=== PATIENT | male | born 1980 | race Two or more races ===

== ENCOUNTER 2020-11-27 19:13 | Inpatient (IN) | payer OTHER ==
[2020-11-27 20:46] VITALS: BMI 29.5
[2020-11-27] MEDS ORDERED: MENTHOL/PHENOL 1 EACH UD MM PRN (23:29)
[2020-11-27] MEDS ORDERED: ACETAMINOPHEN 325 MG TABLET (FP) PO PRN ×2 (23:29)
[2020-11-27] MEDS ORDERED: MAG HYDROX/AL HYDROX/SIMETH 30 ML UNIT-DOSE CUP PO PRN (23:29)
[2020-11-27] MEDS ORDERED: ONDANSETRON *ODT* 4 MG TABLET SL PRN (23:29)
[2020-11-27] MEDS ORDERED: MAGNESIUM CITRATE 300 ML BOTTLE PO PRN (23:29)
[2020-11-27] MEDS ORDERED: IBUPROFEN 400 MG TABLET (FP) PO PRN (23:29)
[2020-11-27] MEDS ORDERED: NICOTINE POLACRILEX 2 MG GUM BUC PRN (23:29)
[2020-11-27] MEDS ORDERED: BISMUTH SUBSALICYLATE 524 MG/30 ML UD PO PRN (23:29)
[2020-11-27] MEDS ORDERED: MAGNESIUM HYDROX 2400MG/30ML ORAL SUSPENSION 30 ML CUP PO PRN (23:29)
[2020-11-28] MEDS ORDERED: METHADONE HCL 10 MG TABLET (FOR DETOX USE ONLY) PO ONE (02:30)
[2020-11-28] MEDS ORDERED: cloNIDine HCL 0.1 MG TABLET PO PRN (02:30)
[2020-11-28] MEDS ORDERED: METHADONE HCL 10 MG TABLET (FOR DETOX USE ONLY) ONE (03:02)
[2020-11-28] MEDS ORDERED: cloNIDine HCL 0.1 MG TABLET ONE (06:11)
[2020-11-28] MEDS ORDERED: hydrOXYzine PAMOATE 25 MG CAPSULE (FP) PO ONE (06:11)
[2020-11-28] MEDS ORDERED: METHOCARBAMOL 500 MG TABLET ONE (06:11)
[2020-11-28] MEDS: METHOCARBAMOL 500 MG TABLET PO PRN ×2 (06:12→12:53)
[2020-11-28] MEDS: hydrOXYzine PAMOATE 25 MG CAPSULE (FP) PO PRN ×2 (06:12→12:53)
[2020-11-28 10:41] LABS: HEMATOCRIT 36.8 % (35.4-49); MCH 28.6 pg (25.7-33.7); MCHC 32.5 g/dl (32.0-35.9); MEAN CELL VOLUME 87.9 fl (80-96); MEAN PLT VOLUME 8.8 fl (7.5-11.1); PLATELET COUNT 263 K/MM3 (134-434); RBC 4.19 M/mm3 (4.00-5.60); RDW 12.8 % (11.9-15.9); WHITE BLOOD COUNT 12.4 K/mm3 (4.0-10.0)
[2020-11-28 11:23] LABS: POTASSIUM 3.6 mmol/L (3.5-5.1)
[2020-11-28 11:26] LABS: ALBUMIN 3.2 g/dl (3.4-5.0); CALCIUM 8.6 mg/dL (8.5-10.1)
[2020-11-28 11:27] LABS: BLOOD UREA NITROGEN 13.9 mg/dL (7-18)
[2020-11-28 11:30] LABS: CREATININE 1.1 mg/dL (0.55-1.3)
[2020-11-28 11:31] LABS: BILIRUBIN,TOTAL 0.5 mg/dL (0.2-1); TOT PROT 6.2 g/dl (6.4-8.2)
[2020-11-28] MEDS: PRENATAL VITAMINS W/ FOLIC ACID TABLET (FP) PO SCH (12:53)
[2020-11-28] MEDS: THIAMINE HCL 100 MG TABLET (FP) PO SCH (22:36)
[2020-11-28] MEDS: MELATONIN 5 MG TABLETS PO SCH (22:36)
[2020-11-29] MEDS ORDERED: METHADONE HCL 5 MG TABLET (FOR DETOX USE ONLY) ONE (08:52)
[2020-11-29] MEDS ORDERED: METHADONE HCL 10 MG TABLET (FOR DETOX USE ONLY) ONE (08:53)
[2020-11-29] MEDS ORDERED: METHADONE (DETOX) 20 MG, METHADONE (DETOX) 5 MG PO ONE (10:00)
[2020-11-29 10:14] LABS: BASO % 0.5 % (0-2.0); EOS % 3.9 % (0-4.5); HEMATOCRIT 37.4 % (35.4-49); HEMOGLOBIN 12.2 GM/dL (11.7-16.9); LYMPH % 21.8 % (8-40); MCH 28.7 pg (25.7-33.7); MCHC 32.6 g/dl (32.0-35.9); MEAN PLT VOLUME 8.8 fl (7.5-11.1); MONO % 9.2 % (3.8-10.2); NEUT % 64.6 % (42.8-82.8); PLATELET COUNT 223 K/MM3 (134-434); RBC 4.26 M/mm3 (4.00-5.60); RDW 12.9 % (11.9-15.9); WHITE BLOOD COUNT 8.1 K/mm3 (4.0-10.0)
[2020-11-29] MEDS: METHOCARBAMOL 500 MG TABLET PO PRN (10:31)
[2020-11-29] MEDS: hydrOXYzine PAMOATE 25 MG CAPSULE (FP) PO PRN ×2 (10:31→22:44)
[2020-11-29] MEDS: PRENATAL VITAMINS W/ FOLIC ACID TABLET (FP) PO SCH (10:32)
[2020-11-29] MEDS: MELATONIN 5 MG TABLETS PO SCH (22:44)
[2020-11-29] MEDS: THIAMINE HCL 100 MG TABLET (FP) PO SCH (22:44)
[2020-11-29] MEDS: QUEtiapine FUMARATE 100 MG TABLET (FP) PO SCH (22:44)
[2020-11-30] MEDS ORDERED: METHADONE HCL 10 MG TABLET (FOR DETOX USE ONLY) PO ONE (10:00)
[2020-11-30] MEDS: METHOCARBAMOL 500 MG TABLET PO PRN (10:28)
[2020-11-30] MEDS: PRENATAL VITAMINS W/ FOLIC ACID TABLET (FP) PO SCH (10:28)
[2020-11-30] MEDS: hydrOXYzine PAMOATE 25 MG CAPSULE (FP) PO PRN (10:31)
[2020-11-30] MEDS: QUEtiapine FUMARATE 100 MG TABLET (FP) PO SCH (22:49)
[2020-11-30] MEDS: THIAMINE HCL 100 MG TABLET (FP) PO SCH (22:49)
[2020-11-30] MEDS: MELATONIN 5 MG TABLETS PO SCH (22:51)
[2020-12-01 09:34] VITALS: BP 101/62; PULSE 103; TEMP 97.6
[2020-12-01] MEDS ORDERED: METHADONE (DETOX) 10 MG, METHADONE (DETOX) 5 MG PO ONE (10:00)
[2020-12-02] MEDS ORDERED: METHADONE HCL 10 MG TABLET (FOR DETOX USE ONLY) PO ONE (10:00)
[2020-12-03] MEDS ORDERED: METHADONE HCL 5 MG TABLET (FOR DETOX USE ONLY) PO ONE (06:00)
== END 2020-12-01 10:14 | disposition home or self-care (01) | DRG 773 ==
LOC: YASAS 19:13 → Y6N 11-28 09:51
PROVIDERS: ADMIT Allergy & Immunology; ATTEND Allergy & Immunology
PROC: HZ2ZZZZ Detoxification Services for Substance Abuse Treatment (ICD-10-PCS; principal; 2020-11-28)
DX: F11.23 Opioid dependence with withdrawal (principal); F17.210 Nicotine dependence, cigarettes, uncomplicated; F19.24 Other psychoactive substance dependence with psychoactive substance-induced mood disorder; F19.282 Other psychoactive substance dependence with psychoactive substance-induced sleep disorder; F39 Unspecified mood [affective] disorder; D72.829 Elevated white blood cell count, unspecified; Z56.0 Unemployment, unspecified; Z59.0 Homelessness; Z87.09 Personal history of other diseases of the respiratory system
CPT/HCPCS: 36415; 80053; 85025; 85027; 86780; 93005; 93010; C9803; J0735; U0003